=== PATIENT | male | born 1965 | race Caucasian/White ===

== ENCOUNTER 2022-08-02 09:02 | Day surgery (SDC) | payer BC ==
[2022-08-01 09:34] VITALS: BMI 28.5
[~2022-08-02 09:02] MED LIST: LACTATED RINGERS 1,000 ML IV SCH
[2022-08-02 09:29] VITALS: RESP 16; TEMP 97.2
[2022-08-02] MEDS ORDERED: PROPOFOL 10 MG/ML 20 ML VIAL IV ONE (09:47)
--- NOTE | 2022-08-02 09:52 | P.GSHP ---
History of Present Illness H&P Date: 08/02/22 Chief Complaint: Screening colonoscopy This a 57-year-old male presents today for screening colonoscopy. Patient denies a significant GI complaints. Past Medical History Past Medical History: Hypertension Additional Past Medical History / Comment(s): BLOOD IN STOOL. PAST DX COLITIS History of Any Multi-Drug Resistant Organisms: None Reported Past Surgical History: Appendectomy Additional Past Surgical History / Comment(s): COLONOSCOPY Past Anesthesia/Blood Transfusion Reactions: No Reported Reaction Smoking Status: Current every day smoker - Past Family History Mother Family Medical History: Cancer Additional Family Medical History / Comment(s): LUNG Medications and Allergies Home Medications Medication Instructions Recorded Confirmed Type amLODIPine [Norvasc] 10 mg PO DAILY 08/01/22 08/02/22 History Allergies Allergy/AdvReac Type Severity Reaction Status Date / Time No Known Allergies Allergy Verified 08/02/22 09:19 Surgical - Exam Vital Signs Temp Pulse Resp BP Pulse Ox 97.2 F L 68 16 158/84 100 08/02/22 09:28 08/02/22 09:28 08/02/22 09:28 08/02/22 09:28 08/02/22 09:28 - General well developed, well nourished, no distress - Eyes PERRL - ENT normal pinna - Neck no masses - Respiratory normal expansion - Cardiovascular Rhythm: regular - Abdomen Abdomen: soft, non tender Assessment and Plan Assessment: We'll perform screening colonoscopy
--- NOTE | 2022-08-02 10:05 | P.OP ---
Date of Procedure: 08/02/22 Preoperative Diagnosis: Screening colonoscopy Postoperative Diagnosis: Total hemorrhoids Normal colonoscopy Procedure(s) Performed: Colonoscopy Anesthesia: MAC Surgeon: Alexey Dover Pathology: none sent Condition: stable Disposition: PACU Description of Procedure: The patient's placed on the endoscopy table in the lateral position. He received IV sedation. Digital rectal exam was performed. Revealed external hemorrhoids. Flexible colonoscope was then placed patient anus and passed throughout the entire colon. The ileocecal valve was visualized. The cecum, ascending and transverse colon appeared normal. The descending and sigmoid colon appeared normal. Scope was then brought back the rectum and external hemorrhoids were noted. Scope was withdrawn for patient.
[2022-08-02 10:30] VITALS: BP 143/86; PULSE 61
== END 2022-08-02 10:45 | disposition home or self-care (01) ==
LOC: ORWHC2ENDO 09:02
PROVIDERS: ATTEND Surgery
DX: Z12.11 Encounter for screening for malignant neoplasm of colon (principal); K64.4 Residual hemorrhoidal skin tags; I10 Essential (primary) hypertension; F17.210 Nicotine dependence, cigarettes, uncomplicated; Z90.49 Acquired absence of other specified parts of digestive tract; Z80.1 Family history of malignant neoplasm of trachea, bronchus and lung; Z79.899 Other long term (current) drug therapy
CPT/HCPCS: 45378; J2704

== ENCOUNTER → 2023-05-24 | Outpatient (CLI) | payer BC ==
--- NOTE | 2023-05-24 08:08 | US ---
EXAMINATION TYPE: US kidneys/renal and bladder DATE OF EXAM: 05/24/2023 COMPARISON: NONE CLINICAL INDICATION: Male, 58 years old with history of R31.0 GROSS HEMATURIA; Hematuria and flank pa in 2 months EXAM MEASUREMENTS: Right Kidney: 10.7 x 5.6 x 4.8 cm Left Kidney: 11.7 x 6.8 x 5.4 cm Right Kidney: fullness of renal pelvis Left Kidney: wnl Bladder: wnl Bilateral Jets seen: yes Fullness of the right renal pelvis versus mild hydronephrosis. No evidence for left-sided hydronephro sis. No nephrolithiasis is seen. No masses are identified. The urinary bladder is anechoic. Bilate ral ureteral jets are seen. IMPRESSION: Fullness of the right renal pelvis versus mild hydronephrosis.
== END | disposition home or self-care (01) ==
LOC: RADUSWWP 07:33
PROVIDERS: ATTEND Urology
DX: R31.0 Gross hematuria (principal)
CPT/HCPCS: 76770